=== PATIENT | male | born 1985 | race Caucasian/White ===

== ENCOUNTER 2018-09-18 15:43 | Emergency (ER) | payer OTHER ==
[2018-09-18] MEDS ORDERED: Ibuprofen 600 MG Tab PO ONE (16:14)
--- NOTE | 2018-09-18 16:23 | EDM.PDOC ---
ED HPI GENERAL MEDICAL PROBLEM - General Chief Complaint: Upper Extremity Injury/Pain Stated Complaint: LEFT ARM INJURY Time Seen by Provider: 09/18/18 15:48 Source of Information: Reports: Patient, RN Notes Reviewed History Limitations: Reports: No Limitations - History of Present Illness INITIAL COMMENTS - FREE TEXT/NARRATIVE: 33-year-old gentleman presents emergency department today following a lifting injury he heard a tearing sensation in his left arm then sudden onset of pain distal aspect of the bicep Left Upper Arm Pain Score (Numeric/FACES): 6 - Related Data Allergies Allergy/AdvReac Type Severity Reaction Status Date / Time Penicillins Allergy Cannot Verified 09/18/18 16:05 Remember Home Meds: Home Meds NK [No Known Home Meds] 09/18/18 [History] Past Medical History Musculoskeletal History: Reports: Fracture Other Musculoskeletal History: Fx nose and collar bone - Past Surgical History HEENT Surgical History: Reports: Other (See Below) Other HEENT Surgeries/Procedures: tonsil I and d Social & Family History - Tobacco Use Smoking Status *Q: Current Every Day Smoker Years of Tobacco use: 5 Packs/Tins Daily: 0.5 Used Tobacco, but Quit: No Second Hand Smoke Exposure: Yes - Caffeine Use Caffeine Use: Reports: Coffee - Alcohol Use Days Per Week of Alcohol Use: 0 - Recreational Drug Use Recreational Drug Use: No Review of Systems - Review of Systems Review Of Systems: See Below Musculoskeletal: Reports: Arm Pain ED EXAM, GENERAL - Physical Exam Exam: See Below Free Text/Narrative:: Examination of the left arm to do appreciate a slight bulge the distal aspect of the bicep he has full range of motion with flexion and extension radial pulses +2 there is tenderness over the distal aspect of the bicep and full range of motion of the shoulder Exam Limited By: No Limitations General Appearance: Alert, WD/WN, No Apparent Distress Course - Vital Signs Last Recorded V/S: Last Vital Signs Temp 96.8 F 09/18/18 16:11 Pulse 87 09/18/18 16:11 Resp 16 09/18/18 16:11 BP 142/96 H 09/18/18 16:11 Pulse Ox 96 09/18/18 16:11 - Orders/Labs/Meds Orders: Active Orders 24 hr Category Date Time Status DME for Discharge [COMM] Per Unit Routine Oth 09/18/18 16:14 Ordered Meds: Medications Discontinued Medications Generic Name Dose Route Start Last Admin Trade Name Volodymyr PRN Reason Stop Dose Admin Ibuprofen 600 mg 09/18/18 16:14 Motrin PO 09/18/18 16:15 ONETIME ONE Departure - Departure Time of Disposition: 16:22 Disposition: Home, Self-Care 01 Condition: Fair Clinical Impression: Rupture of left biceps tendon Qualifiers: Encounter type: initial encounter Qualified Code(s): S46.212A - Strain of muscle, fascia and tendon of other parts of biceps, left arm, initial encounter - Discharge Information Referrals: PCP,None [Primary Care Provider] - Forms: ED Department Discharge Additional Instructions: Use Tylenol or Motrin as needed for pain control, though orthopedics department will call you for an appointment time this week - My Orders Last 24 Hours: My Active Orders 09/18/18 16:14 DME for Discharge [COMM] Per Unit Routine - Assessment/Plan Last 24 Hours: My Active Orders 09/18/18 16:14 DME for Discharge [COMM] Per Unit Routine Plan: Assessment Acuity = acute Site and laterality = probable left biceps tendon tear Etiology = secondary lifting injury Manifestations = none Location of injury = Home Lab values = none Plan He is placed in a sling will use Tylenol Motrin as needed for pain control plan is to follow up with orthopedics this week Dr. Parikh This note was dictated using [employer] voice recognition software please call with any questions on syntax or grammar.
== END 2018-09-18 16:35 | disposition home or self-care (01) ==
LOC: JP.ED 15:43
DX: S46.212A Strain of muscle, fascia and tendon of other parts of biceps, left arm, initial encounter (principal); F17.210 Nicotine dependence, cigarettes, uncomplicated; Z88.0 Allergy status to penicillin; X50.9XXA Other and unspecified overexertion or strenuous movements or postures, initial encounter
CPT/HCPCS: 99283; A9270

== ENCOUNTER 2018-09-25 05:52 | Day surgery (SDC) | payer OTHER ==
[2018-09-25] MEDS ORDERED: Clindamycin Phosphate 900 MG in Sodium Chloride 0.9% 100 ML IV ONE (06:30)
[2018-09-25] MEDS ORDERED: Nozin Nasal Sanitizer NASBOTH ONE (06:30)
[2018-09-25] MEDS ORDERED: Lidocaine 0.5% 50 ML SDV ONE (06:37)
[2018-09-25] MEDS ORDERED: Bupivacaine 0.5%/EPINEPHrine 1:200,000 50 ML MDV ONE (06:38)
[2018-09-25] MEDS ORDERED: Lactated Ringers 1,000 ML IV SCH (06:42)
[2018-09-25] MEDS ORDERED: Propofol 200 MG/20 ML SDV ONE ×3 (07:18→08:35)
[2018-09-25] MEDS ORDERED: Midazolam 1 MG/ML 2 ML SDV ONE ×2 (07:18→08:10)
[2018-09-25] MEDS ORDERED: fentaNYL 100 MCG/2 ML SDV ONE (07:18)
[2018-09-25] MEDS ORDERED: Bupivacaine 0.5% 30 ML SDV ONE (07:19)
[2018-09-25] MEDS ORDERED: Lidocaine 1% 2 ML ONE (07:28)
--- NOTE | 2018-09-29 13:39 | OR ---
DATE OF PROCEDURE: 09/25/2018 PREOPERATIVE DIAGNOSIS: Rupture of left distal biceps tendon. POSTOPERATIVE DIAGNOSIS: Rupture of left distal biceps tendon. PROCEDURE: Repair of left distal biceps. ANESTHESIA: Axillary block with sedation. INDICATIONS: Sanford is a 33-year-old gentleman who sustained an injury to his left arm at work. He was pulling a heavy object when he felt a pop in the anterior aspect of his elbow. A deformity of the biceps was noted immediately. Examination was consistent with complete rupture of the distal biceps with retraction. He now presents for repair. Risks, benefits, and potential complications were discussed. DESCRIPTION OF PROCEDURE: After adequate anesthesia was obtained, the left arm was prepped and draped in a sterile fashion. Arm was exsanguinated and tourniquet inflated to 250 mmHg. Incision was made across the flexion crease in the elbow. This was carried down through the subcutaneous tissues. Cutaneous nerve branches were identified and preserved. Cephalic vein was also identified, preserved, and retracted laterally. The tendon sheath of the biceps tendon was identified, and the retracted end of the distal biceps was then delivered down into the wound. The end was slightly bolboud with a hematoma present. End of the tendon was debrided with Metzenbaum scissors. A whipstitch was then placed into the end of the tendon. Blunt dissection was then carried down to the radial tuberosity. With the arm supinated, tuberosity was identified. This was cleared of soft tissue with an elevator. Guidepin was then drilled across both cortices on the radius. An 8 mm reamer was then placed over the guidepin and drilled through the near cortex. Tenodesis button was then placed over the whipstitch sutures. This was advanced into the bone tunnel and out the cortex on the opposite side. This was secured against the cortex. The arm was slightly flexed. Sutures were tensioned pulling the biceps tendon into the bone tunnel. Sutures were then tied. Free needle was then used to pass one of the sutures through the end of the tendon and tied down once again. Suture was then cut. Good tension was noted on the biceps with yarsanism of normal position. Wound was irrigated. Anterior fascia was then closed with 2-0 Vicryl, the skin was closed with 2-0 Vicryl, and a running 3- 0 Monocryl. Steri-Strips were applied. The wound was infiltrated with Marcaine. A well- padded sterile dressing was then placed with a posterior splint with the arm in 90 degrees flexion. The patient tolerated the procedure well. There were no complications. He was taken from the operating room in a stable condition. Teddy Parikh MD /[id number] MTDD
== END 2018-09-25 10:58 | disposition home or self-care (01) ==
LOC: JP.SDS 05:52
PROVIDERS: ATTEND Specialist
DX: S46.212A Strain of muscle, fascia and tendon of other parts of biceps, left arm, initial encounter (principal); F17.210 Nicotine dependence, cigarettes, uncomplicated; X50.0XXA Overexertion from strenuous movement or load, initial encounter; Y99.0 Civilian activity done for income or pay; Z88.0 Allergy status to penicillin
CPT/HCPCS: 24342; 36415; 80048; 85027; A9270; C1776; J2001; J2250; J2704; J3010; J3490; J7030; J7120